=== PATIENT | male | born 1970 | race Two or more races ===

== ENCOUNTER 2024-01-22 10:23 | Emergency (ER) | payer BC, SELFPAY ==
[2024-01-22 10:28] VITALS: BP 181/127
--- NOTE | 2024-01-22 11:09 | ED.GENMED ---
History of Present Illness
General
Chief Complaint: Blood Pressure Problem
Source: patient and spouse
Exam Limitations: none
Time Seen by Provider: 01/22/24 10:49
Nursing documentation reviewed up to this point in time: agreed with
Travel History
Have you had any contact with someone who has COVID-19?: No
Do you have any symptoms of coronavirus? Fever > 100 degrees, chills, cough, shortness of breath, sore throat, loss of taste or smell, muscle aches, or headache?: No
History of Present Illness
History of Present Illness:
53-year-old male referred from his oral surgeon for evaluation of high blood pressure told he has blood pressure was high previously told to monitor it, never given a prescription has hyperlipidemia, apparently had negative vascular studies not on a
statin, he has no headache no chest pain no shortness of breath states feels little nervous about the procedure but is not having much pain, does have a family history of hypertension, nondrinker non-smoker lastly spouse states that he does snore a
lot wonders if he could have sleep apnea
Past History
Past History
ED Past Medical History: Hypercholesterolemia; Negative HTN or NIDDM
Social History
Tobacco: Non-smoker
Alcohol: None
Drug: None
Personal:
Living: with family
Employment: Employed
Review of Systems
Review of Systems
All Other Systems: Not applicable
EENT: Reports no symptoms
Respiratory: Reports no symptoms
Cardiac: Reports no symptoms
ABD/GI: Reports no symptoms
: Reports no symptoms
Musculoskeletal: Reports no symptoms
Neurological: Denies headache
Phy Exam
Physical Exam
Physical Exam:
Physical Exam
General: no apparent distress, not acutely ill
Neck: No jaundice
Heart: Regular
Lungs: no acute respiratory distress. clear bilaterally
Neuro: alert and oriented. no focal neurological deficits
Skin: no rash
Psychiatric: well kept. interactive and cooperative
Extremities: no edema. no calf tenderness.
Course
Orders/Labs/Results
Orders:
Orders
01/22/24 10:58
Electrocardiogram (*1) Stat
Reason for Study: Abdominal Pain
EKG- Treatment ONCE
HydrALAZINE [Apresoline] 10 mg IV NOW STA
01/22/24 11:02
Basic Metabolic Panel Urgent
Complete Blood Count/With Diff Urgent
01/22/24 13:01
Enalaprilat [Vasotec] 0.625 mg IV NOW STA
Lisinopril [Zestril] 5 mg PO NOW STA
Abnormal Lab Results
01/22/24
11:02
Glucose 109 H mg/dl
(70-99)
01/22/24 11:02
01/22/24 11:02
Vital Signs
Initial and Last Documented VS:
Initial Vital Signs
Temp Pulse Resp BP Pulse Ox
98.0 F 81 18 181/127 98
01/22/24 10:28 01/22/24 10:28 01/22/24 10:28 01/22/24 10:28 01/22/24 10:28
Last Documented Vital Signs
Temp Pulse Resp BP Pulse Ox
98.0 F 108 17 141/89 98
01/22/24 10:28 01/22/24 13:13 01/22/24 13:00 01/22/24 13:13 01/22/24 13:00
MDM/Problems Addressed
Differential Diagnosis Includes:
Essential hypertension hypertensive urgency, no clinical signs of endorgan damage, perhaps subclinical anxiety related to his dental issue playing a role
MDM/Problems Addressed:
High blood pressure
*Pulse Oximetry
Patient hypoxic: no
*EKG
Interpreted by ED Provider?: Yes
Interpretation: normal
Comparison EKG: no comparison EKG present
Heart Rate: 78
Rate: normal
Rhythm: sinus
Ischemia: T-wave inversion
*[employer] Interpretation
Rate: [employer]- N/A
*Critical Care Note
Total Time (30-74mins, 75-104mins- exclusive of procedures): Not Applicable
Update Note
Update Note:
120 labs noted EKG noted blood pressure improved
ED Attending Note
-
Portions of this chart may have been created with voice recognition software.� Occasional wrong word or��sound alike� substitutions may have occurred due to the inherent limitations of voice recognition software.
Discharge Plan
Departure
Patient with high blood pressure during this ER visit?: Yes
Condition: Good
Prescriptions:
New
lisinopril 5 mg tablet
5 mg PO DAILY Qty: 30 6RF
Referrals:
Deann Love DO [Active] - Next open appointment
Alex Lopez MD [Family Provider] - Next open appointment
Interventions
Interventions:
*Risk Screen - Suicide Last Done: 01/22/24 10:30
*General Assessment Last Done: 01/22/24 10:30
*Neglect/Abuse Screening Last Done: 01/22/24 10:30
ED- Fall Risk Assessment Last Done: 01/22/24 11:23
*ED COVID-19 Vaccine History Last Done: 01/22/24 11:23
ED- Cardiac Assessment Last Done: 01/22/24 11:23
ED- Neurological Assessment Last Done: 01/22/24 11:23
ED- Pulmonary Assessment Last Done: 01/22/24 11:23
Discharge Date and Time
Print Language: SWEDISH
[2024-01-22] MEDS: APRESOLINE 10 MG IV (11:11)
[2024-01-22 11:12] VITALS: BP 155/125
[2024-01-22 11:23] VITALS: BMI 34.4
[2024-01-22 11:25] LABS: % Basophils 0.3 % (0-2); % Eosinophils 2.2 % (0-6); % Immature Granulocytes 0.3 % (0-0.5); % Lymphocytes 32.1 % (20.5-51.1); % Monocytes 8.6 % (1.7-9.3); % Neutrophils 56.5 % (42.2-75.2); Absolute Eosinophils 0.1 10^3/uL (0-0.7); Absolute Lymphocytes 1.9 10^3/uL (1.2-3.4); Absolute Monocytes 0.5 10^3/uL (0.1-0.6); Absolute Neutrophils 3.3 10^3/uL (1.4-6.5); Hematocrit 44.2 % (39.0-52.0); Hemoglobin 14.9 g/dL (13.0-18.0); Mean Corp Hgb Conc. 33.7 g/dL (33.0-37.0); Mean Corpuscular Hgb 29.6 pg (27.0-31.0); Mean Corpuscular Volume 87.7 fL (80.0-94.0); Mean Platelet Volume 9.3 fL (7.4-10.4); Nucleated Red Blood Cells % 0 % (-); Platelet Count 223 10^3/uL (130-400); Red Blood Cell Count 5.04 10^6/uL (4.70-6.10); Red Cell Dist. Width 13.6 % (11.5-14.5); White Blood Cell Count 5.8 10^3/uL (4.8-10.8)
[2024-01-22 11:57] VITALS: BP 180/95
[2024-01-22 12:00] VITALS: BP 163/117
[2024-01-22 12:30] VITALS: BP 135/97
[2024-01-22 12:59] LABS: Blood Urea Nitrogen 13 mg/dl (9-20); Calcium 9.9 mg/dl (8.4-10.2); Carbon Dioxide 24 mmol/L (22-30); Chloride 103 mmol/L (98-107); Estimated Creatinine Clearance 102 ml/min; Glucose 109 mg/dl (70-99); Potassium 4.2 mmol/L (3.5-5.1); Sodium 139 mmol/L (135-145); eGFR > 60.00
[2024-01-22 13:00] VITALS: BP 141/89
[2024-01-22] MEDS: ZESTRIL 5 MG PO (13:12)
[2024-01-22] MEDS: VASOTEC 0.625 MG IV (13:13)
== END 2024-01-22 13:34 | disposition home or self-care (01) ==
LOC: EMR 10:23
PROVIDERS: EMERGENCY PHYSICIAN Emergency Medicine; FAMILY PHYSICIAN Family Medicine
DX: R03.0 Elevated blood-pressure reading, without diagnosis of hypertension (principal); E78.00 Pure hypercholesterolemia, unspecified
CPT/HCPCS: 99284; 96374; 96375; 80048; 85025; 93005